=== PATIENT | male | born 1985 | race Caucasian/White ===

== ENCOUNTER 2025-05-12 13:10 | Emergency (ER) | payer OTHER ==
[~2025-05-12] VITALS: Ht 170.2 cm; Wt 92.8 kg
[2025-05-12] MEDS ORDERED: CIPR-249 PO (13:27)
[2025-05-12] MEDS ORDERED: METR-369 PO (13:27)
[2025-05-12] MEDS ORDERED: AMOX500T PO (13:27)
[2025-05-12] MEDS ORDERED: AUGM500T34 PO (13:28)
[2025-05-12] MEDS ORDERED: AMOX875T2 PO (13:30)
[2025-05-12] MEDS: LIDOCAINE/PRILOCAINE CREAM 5 GM TUBE TOP ONE (17:24)
[2025-05-12 18:39] VITALS: BP 123/86; TEMP 97.4; O2SAT 99
== END 2025-05-12 18:52 | disposition home or self-care (01) ==
LOC: M ED 13:10
DX: K62.9 Disease of anus and rectum, unspecified (principal); Z79.2 Long term (current) use of antibiotics; Z79.899 Other long term (current) drug therapy